=== PATIENT | female | born 1940 | race Caucasian/White ===

== ENCOUNTER 2020-03-18 17:41 | Inpatient (IN) ==
[2020-03-18 18:56] LABS: ABS Eosinophils 0.1 10^3/ul (0-0.6); ABS Lymphocytes 1.8 10^3/ul (1.0-4.8); ABS Monocytes 0.6 10^3/ul (0-0.8); ABS Neutrophils 12.8 10^3/ul (1.5-7.7); Eosinophil % 0.8 %; Hematocrit 41 % (35-47); Hemoglobin 13.8 g/dL (12.0-16.0); Lymphocyte % 11.7 %; Mean Corpuscular HGB Conc 34 g/dL (31-36); Mean Corpuscular Hemoglobin 28 pg (27-31); Mean Corpuscular Volume 83 fL (80-97); Mean Platelet Volume 6.4 fL (7.4-10.4); Platelet Count 357 10^3/uL (150-450); Red Blood Count 4.92 10^6 /uL (3.70-4.87); Red Cell Distribution Width 15 % (10-15); White Blood Count 15.4 10^3/uL (3.5-10.8)
[2020-03-18 19:09] LABS: Activated Partial Thrombo Time 29.2 seconds (26.0-38.0); INR 0.97 (0.82-1.09)
[2020-03-18 19:13] LABS: Albumin 4.6 g/dL (3.2-5.2); Albumin/Globulin Ratio 1.6 (1-3); BUN/Creatinine Ratio 27.1 (8-20); Calcium 9.8 mg/dL (8.6-10.3); EGFR African American 97.4 (>60); EGFR Non-African American 80.5 (>60); Globulin 2.8 g/dL (2-4); Potassium 4.1 mmol/L (3.5-5.0); Total Bilirubin 0.5 mg/dL (0.2-1.0); Total Protein 7.4 g/dL (6.4-8.9)
[2020-03-18] MEDS ORDERED: HYDROcodone/ACETAMIN 5/325 mg TAB PO ONE (20:39)
[2020-03-18] MEDS ORDERED: Ondansetron 4 mg VIAL 2 MG/ML 2 ml VIAL IV PRN (20:54)
[2020-03-18] MEDS ORDERED: Enoxaparin 40 MG/0.4 ML SYR SUBCUT SCH (21:00)
[2020-03-18] MEDS ORDERED: Dextrose 50% Syringe 50 ml 25 GM/50 ML SYRINGE IV PUSH PRN (21:30)
[2020-03-19 01:42] LABS: Urine Appearance Cloudy; Urine Bilirubin Negative (Negative); Urine Blood Negative (Negative); Urine Color Yellow; Urine Glucose Negative (Negative); Urine Ketones Trace (Negative); Urine Nitrite Negative (Negative); Urine Protein Negative (Negative); Urine Specific Gravity 1.026 (1.010-1.030); Urine Urobilinogen Negative (Negative)
[2020-03-19 04:21] LABS: ABS Eosinophils 0.1 10^3/ul (0-0.6); ABS Lymphocytes 2.4 10^3/ul (1.0-4.8); ABS Monocytes 0.7 10^3/ul (0-0.8); ABS Neutrophils 8.9 10^3/ul (1.5-7.7); Eosinophil % 0.9 %; Hematocrit 38 % (35-47); Hemoglobin 12.6 g/dL (12.0-16.0); Lymphocyte % 19.6 %; Mean Corpuscular HGB Conc 33 g/dL (31-36); Mean Corpuscular Hemoglobin 28 pg (27-31); Mean Corpuscular Volume 84 fL (80-97); Mean Platelet Volume 6.5 fL (7.4-10.4); Nucleated Red Blood Cells % 0.1; Platelet Count 334 10^3/uL (150-450); Red Blood Count 4.52 10^6 /uL (3.70-4.87); Red Cell Distribution Width 15 % (10-15); White Blood Count 12.2 10^3/uL (3.5-10.8)
[2020-03-19] MEDS: Fluoxetine LIQ 20 MG/5 ML UDC PO SCH (09:40)
[2020-03-19] MEDS: HYDROcodone/ACETAMIN 5/325 mg TAB PO PRN (21:55)
[2020-03-20] MEDS: HYDROcodone/ACETAMIN 5/325 mg TAB PO PRN ×3 (03:55→18:22)
[2020-03-20] MEDS: Fluoxetine LIQ 20 MG/5 ML UDC PO SCH (09:57)
[2020-03-20 10:00] LABS: ABS Eosinophils 0.2 10^3/ul (0-0.6); ABS Lymphocytes 2.5 10^3/ul (1.0-4.8); ABS Monocytes 0.8 10^3/ul (0-0.8); ABS Neutrophils 7.4 10^3/ul (1.5-7.7); Eosinophil % 2.1 %; Hematocrit 37 % (35-47); Hemoglobin 12.3 g/dL (12.0-16.0); Lymphocyte % 22.9 %; Mean Corpuscular HGB Conc 33 g/dL (31-36); Mean Corpuscular Hemoglobin 28 pg (27-31); Mean Corpuscular Volume 84 fL (80-97); Mean Platelet Volume 6.3 fL (7.4-10.4); Platelet Count 317 10^3/uL (150-450); Red Blood Count 4.44 10^6 /uL (3.70-4.87); Red Cell Distribution Width 15 % (10-15); White Blood Count 11.1 10^3/uL (3.5-10.8)
[2020-03-20] MEDS ORDERED: Senna TAB 8.6 mg TAB PO PRN (10:15)
[2020-03-20] MEDS ORDERED: Magnesium Hydroxide LIQ 30 ML UDC PO PRN (10:15)
[2020-03-20] MEDS ORDERED: Polyethylene Glycol 3350 17 GM PACKET PO PRN (10:15)
[2020-03-20 10:22] LABS: BUN/Creatinine Ratio 20.7 (8-20); Calcium 9.2 mg/dL (8.6-10.3)
[2020-03-20] MEDS: Magnesium Hydroxide LIQ 30 ML UDC PO SCH (21:04)
[2020-03-21] MEDS: HYDROcodone/ACETAMIN 5/325 mg TAB PO PRN ×2 (00:37→08:31)
[2020-03-21 05:23] LABS: ABS Eosinophils 0.3 10^3/ul (0-0.6); ABS Lymphocytes 3.1 10^3/ul (1.0-4.8); ABS Monocytes 0.8 10^3/ul (0-0.8); ABS Neutrophils 4.9 10^3/ul (1.5-7.7); Eosinophil % 3.6 %; Hematocrit 36 % (35-47); Hemoglobin 12.3 g/dL (12.0-16.0); Lymphocyte % 34.1 %; Mean Corpuscular HGB Conc 34 g/dL (31-36); Mean Corpuscular Hemoglobin 28 pg (27-31); Mean Corpuscular Volume 83 fL (80-97); Mean Platelet Volume 6.4 fL (7.4-10.4); Platelet Count 325 10^3/uL (150-450); Red Blood Count 4.34 10^6 /uL (3.70-4.87); Red Cell Distribution Width 15 % (10-15); White Blood Count 9.2 10^3/uL (3.5-10.8)
[2020-03-21 05:39] LABS: BUN/Creatinine Ratio 21.3 (8-20); Calcium 9.2 mg/dL (8.6-10.3); EGFR African American 114.2 (>60); EGFR Non-African American 94.4 (>60); Potassium 4.3 mmol/L (3.5-5.0)
[2020-03-21] MEDS: Magnesium Hydroxide LIQ 30 ML UDC PO SCH (08:24)
[2020-03-21 08:29] VITALS: BP 139/58
[2020-03-21] MEDS: Fluoxetine LIQ 20 MG/5 ML UDC PO SCH (08:32)
[2020-03-21] MEDS ORDERED: Polyethylene Glycol 3350 17 GM PACKET PO SCH (09:00)
== END 2020-03-21 08:55 | DRG 964 ==
LOC: ED 17:41 → SSU 22:55
PROVIDERS: ADMIT Internal Medicine; ATTEND Internal Medicine

== ENCOUNTER 2020-03-21 07:10 | Inpatient (IN) ==
[2020-03-21] MEDS ORDERED: HYDROcodone/ACETAMIN 5/325 mg TAB PO ONE (10:55)
[2020-03-21] MEDS ORDERED: Senna TAB 8.6 mg TAB PO PRN (12:15)
[2020-03-21] MEDS ORDERED: Dextrose 50% Syringe 50 ml 25 GM/50 ML SYRINGE IV PUSH PRN (13:24)
[2020-03-21] MEDS: Enoxaparin 40 MG/0.4 ML SYR SUBCUT SCH (14:41)
[2020-03-21] MEDS: HYDROcodone/ACETAMIN 5/325 mg TAB PO PRN (17:00)
[2020-03-22 04:19] LABS: ABS Eosinophils 0.3 10^3/ul (0-0.6); ABS Lymphocytes 2.5 10^3/ul (1.0-4.8); ABS Monocytes 0.9 10^3/ul (0-0.8); ABS Neutrophils 5.8 10^3/ul (1.5-7.7); Eosinophil % 3.6 %; Hematocrit 36 % (35-47); Hemoglobin 12.2 g/dL (12.0-16.0); Lymphocyte % 26.4 %; Mean Corpuscular HGB Conc 34 g/dL (31-36); Mean Corpuscular Hemoglobin 28 pg (27-31); Mean Corpuscular Volume 83 fL (80-97); Mean Platelet Volume 6.3 fL (7.4-10.4); Platelet Count 339 10^3/uL (150-450); Red Blood Count 4.35 10^6 /uL (3.70-4.87); Red Cell Distribution Width 15 % (10-15); White Blood Count 9.5 10^3/uL (3.5-10.8)
[2020-03-22] MEDS: Fluoxetine LIQ 20 MG/5 ML UDC PO SCH (08:52)
[2020-03-22] MEDS: Polyethylene Glycol 3350 17 GM PACKET PO SCH (08:54)
[2020-03-22] MEDS: HYDROcodone/ACETAMIN 5/325 mg TAB PO PRN ×2 (08:54→18:28)
[2020-03-22] MEDS: Enoxaparin 40 MG/0.4 ML SYR SUBCUT SCH (12:45)
[2020-03-22] MEDS: METFORMIN 1000 MG PO SCH (21:55)
[2020-03-23] MEDS: HYDROcodone/ACETAMIN 5/325 mg TAB PO PRN ×2 (02:41→20:03)
[2020-03-23] MEDS: Fluoxetine LIQ 20 MG/5 ML UDC PO SCH (08:41)
[2020-03-23] MEDS: CMC:SitaGLIPtin 25mg TAB (NF) 25 MG TAB PO SCH (08:42)
[2020-03-23] MEDS: Polyethylene Glycol 3350 17 GM PACKET PO SCH (08:44)
[2020-03-23] MEDS: Enoxaparin 40 MG/0.4 ML SYR SUBCUT SCH (12:17)
[2020-03-23] MEDS: METFORMIN 1000 MG PO SCH (20:03)
[2020-03-24 06:53] LABS: ABS Eosinophils 0.4 10^3/ul (0-0.6); ABS Lymphocytes 2.8 10^3/ul (1.0-4.8); ABS Monocytes 0.8 10^3/ul (0-0.8); Eosinophil % 3.9 %; Hematocrit 38 % (35-47); Hemoglobin 12.7 g/dL (12.0-16.0); Mean Corpuscular HGB Conc 34 g/dL (31-36); Mean Corpuscular Hemoglobin 28 pg (27-31); Mean Corpuscular Volume 84 fL (80-97); Mean Platelet Volume 6.4 fL (7.4-10.4); Platelet Count 384 10^3/uL (150-450); Red Blood Count 4.49 10^6 /uL (3.70-4.87); Red Cell Distribution Width 14 % (10-15)
[2020-03-24 07:13] LABS: Albumin 3.8 g/dL (3.2-5.2); Albumin/Globulin Ratio 1.3 (1-3); BUN/Creatinine Ratio 23.1 (8-20); Calcium 9.4 mg/dL (8.6-10.3); EGFR African American 106.1 (>60); EGFR Non-African American 87.7 (>60); Globulin 2.9 g/dL (2-4); Potassium 4.5 mmol/L (3.5-5.0); Total Bilirubin 0.6 mg/dL (0.2-1.0); Total Protein 6.7 g/dL (6.4-8.9)
[2020-03-24] MEDS: HYDROcodone/ACETAMIN 5/325 mg TAB PO PRN (08:14)
[2020-03-24] MEDS: Fluoxetine LIQ 20 MG/5 ML UDC PO SCH (08:23)
[2020-03-24] MEDS: Polyethylene Glycol 3350 17 GM PACKET PO SCH (08:23)
[2020-03-24] MEDS: CMC:SitaGLIPtin 25mg TAB (NF) 25 MG TAB PO SCH (08:24)
[2020-03-24] MEDS: Enoxaparin 40 MG/0.4 ML SYR SUBCUT SCH (14:13)
[2020-03-24] MEDS: METFORMIN 1000 MG PO SCH (21:10)
[2020-03-25] MEDS: HYDROcodone/ACETAMIN 5/325 mg TAB PO PRN (07:26)
[2020-03-25] MEDS: Fluoxetine LIQ 20 MG/5 ML UDC PO SCH (08:19)
[2020-03-25] MEDS: CMC:SitaGLIPtin 25mg TAB (NF) 25 MG TAB PO SCH (08:19)
[2020-03-25] MEDS: Polyethylene Glycol 3350 17 GM PACKET PO SCH (08:20)
[2020-03-25] MEDS: Enoxaparin 40 MG/0.4 ML SYR SUBCUT SCH (15:18)
[2020-03-25] MEDS: METFORMIN 1000 MG PO SCH (20:03)
[2020-03-26] MEDS: CMC:SitaGLIPtin 25mg TAB (NF) 25 MG TAB PO SCH (07:37)
[2020-03-26] MEDS: Polyethylene Glycol 3350 17 GM PACKET PO SCH (07:37)
[2020-03-26] MEDS: Fluoxetine LIQ 20 MG/5 ML UDC PO SCH (07:37)
[2020-03-26] MEDS: Enoxaparin 40 MG/0.4 ML SYR SUBCUT SCH (12:30)
[2020-03-26] MEDS: HYDROcodone/ACETAMIN 5/325 mg TAB PO PRN (12:30)
[2020-03-26] MEDS: METFORMIN 1000 MG PO SCH (20:09)
[2020-03-27] MEDS: Fluoxetine LIQ 20 MG/5 ML UDC PO SCH (08:13)
[2020-03-27] MEDS: Polyethylene Glycol 3350 17 GM PACKET PO SCH (08:13)
[2020-03-27] MEDS: CMC:SitaGLIPtin 25mg TAB (NF) 25 MG TAB PO SCH (08:13)
[2020-03-27] MEDS: HYDROcodone/ACETAMIN 5/325 mg TAB PO PRN (09:46)
[2020-03-27] MEDS: Enoxaparin 40 MG/0.4 ML SYR SUBCUT SCH (12:33)
[2020-03-27] MEDS: METFORMIN 1000 MG PO SCH (20:48)
[2020-03-28 05:55] VITALS: BP 116/51
[2020-03-28] MEDS: Polyethylene Glycol 3350 17 GM PACKET PO SCH (07:36)
[2020-03-28] MEDS: CMC:SitaGLIPtin 25mg TAB (NF) 25 MG TAB PO SCH (07:37)
[2020-03-28] MEDS: Fluoxetine LIQ 20 MG/5 ML UDC PO SCH (07:38)
[2020-03-28] MEDS: HYDROcodone/ACETAMIN 5/325 mg TAB PO PRN (08:39)
[2020-03-28] MEDS: Enoxaparin 40 MG/0.4 ML SYR SUBCUT SCH (13:37)
== END 2020-03-28 16:30 | disposition home health service (06) | DRG 561 ==
LOC: PMRU 09:26
PROVIDERS: ADMIT Physical Medicine & Rehabilitation; ATTEND Physical Medicine & Rehabilitation